=== PATIENT | female | born 1980 | race Caucasian/White ===

== ENCOUNTER 2024-10-27 06:52 | Day surgery (SDC) | payer OTHER ==
[2024-10-27] VITALS (24 sets, daily range): BP systolic 88–128; BP diastolic 46–88
[~2024-10-27] VITALS: Ht 170.2 cm; Wt 68.3 kg
[~2024-10-27 06:52] MED LIST: ALPR.5 PO; BUSP10 PO; Bentyl20 MG PO; ESCI20 PO; GABA300 PO; HYDR1TAB94 PO; IBUP800 PO; ONDA4 PO; ONDA4ODT MM; Percocet 10-321 EACH PO; TOPI100 PO; VENL75ER PO
[2024-10-27] MEDS ORDERED: Benzocaine Oral Spray 0.5ML UD ONE (07:04)
--- NOTE | 2024-10-27 07:25 | NUR ---
Ambulatory in Day Surgery. History, Chart, Medications and Allergies reviewed before start of procedure. Patient confirms NPO status and agrees with scheduled surgery. Patient states colon prep results clear. Patient States Post-Procedure ride home has been arranged.
[2024-10-27] MEDS ORDERED: Midazolam HCl 1MG / ML 2ML Vial ONE (07:31)
--- NOTE | 2024-10-27 07:34 | NUR ---
10/27/24 0734 Albertina Restrepo CONFIRMED AND REVIEWED H&P, MEDCICATIONS, ALLERGIES, MEDICAL HISTORY, RESPIRATORY HISTORY, VITAL SIGNS, 3-LEAD EKG, CONSENTS, AND PHYSICIAN ORDERS. PATIENT CONFIRMS NPO STATUS AND AGREES WITH SCHEDULED PROCEDURE. MONITOR INTACT WITH CONTINUOUS PULSE OXIMETRY, CAPNOGRAPHY, 3-LEAD EKG, INTERMITTENT BP. SUPPLEMENTAL O2 TO BE TITRATED THROUGHOUT PROCEDURE TO MAINTAIN O2 SATURATION ABOVE 90%. PATIENT DETERMINED TO BE ASA APPROPRIATE FOR PROPOFOL SEDATION PRIOR TO START OF PROCEDURE BY DR. CASTRO. HURRICAINE SPRAY TO OROPHARYX. Bite Block Placed.
[2024-10-27] MEDS ORDERED: FentaNYL Citrate 50 MCG/ML 2 ML Injection ONE (07:49)
== END 2024-10-27 08:47 | disposition home or self-care (01) ==
LOC: ORSCMMR 06:52 → ORD 07:30 → ORSCMMR 07:30
PROVIDERS: Internal Medicine Gastroenterology
PROC: 0DJD8ZZ Inspection of Lower Intestinal Tract, Via Natural or Artificial Opening Endoscopic (ICD-10-PCS; principal; 2024-10-27 07:30)
PROC: 0DB48ZX Excision of Esophagogastric Junction, Via Natural or Artificial Opening Endoscopic, Diagnostic (ICD-10-PCS; principal; 2024-10-27 07:30)
PROC: 0DB78ZX Excision of Stomach, Pylorus, Via Natural or Artificial Opening Endoscopic, Diagnostic (ICD-10-PCS; principal; 2024-10-27 07:30)
PROC: 0DB98ZX Excision of Duodenum, Via Natural or Artificial Opening Endoscopic, Diagnostic (ICD-10-PCS; principal; 2024-10-27 07:30)
DX: R10.13 Epigastric pain (principal); Z12.11 Encounter for screening for malignant neoplasm of colon; K31.9 Disease of stomach and duodenum, unspecified; Q39.4 Esophageal web; F41.9 Anxiety disorder, unspecified; Z79.899 Other long term (current) drug therapy
CPT/HCPCS: 88305; 88312; 88342; A9270; J2250; J2704; J3010; J7120